=== PATIENT | female | born 1965 | race Asian ===

== ENCOUNTER 2017-04-26 09:50 | Emergency (ER) | payer SELFPAY ==
[2017-04-26 10:05] VITALS: BP 145/62
--- NOTE | 2017-04-26 10:43 | RAD ---
HISTORY: Fall, left arm pain COMPARISONS: None VIEWS: 3, frontal and lateral oblique views of the left elbow, with frontal external rotation views of the left humerus FINDINGS: BONE DENSITY: Normal. BONES: There is an oblique, angulated fracture of the distal humeral diaphysis, with approximately 20 degrees of ulnar angulation of the distal fragment with respect to the proximal fragment . There is a 100% posterior displacement of the distal fragment with respect to the proximal fragment. JOINTS: There is no arthropathy. ALIGNMENT: There is no dislocation. SOFT TISSUES: Unremarkable. OTHER FINDINGS: None. IMPRESSION: OBLIQUE, ANGULATED AND DISPLACED FRACTURE OF THE DISTAL HUMERAL DIAPHYSIS
[2017-04-26] MEDS ORDERED: Ketorolac INJ* 30 MG/ML 1 ML VIAL IV PUSH ONE (10:57)
--- NOTE | 2017-04-26 10:59 | ED ---
Upper Extremity Pain - HPI Summary HPI Summary: 51F presents with left elbow pain s/p falling. She fell onto left arm. The area was slippery and she slipped on the ground and fell onto that side. She denies any chest pain, SOB. She has not taken anything for pain. She is right handed. She works as a teacher. She denies any numbness or tingling. She can move her left fingers. She states pain is greatest in her left upper arm near her elbow. She denies any previous fracture there. She is from [facility]. - History of Current Complaint Chief Complaint: EDExtremityUpper Stated Complaint: LT ARM INJURY Time Seen by Provider: 04/26/17 10:33 - Allergies/Home Medications Allergies/Adverse Reactions: Allergies Allergy/AdvReac Type Severity Reaction Status Date / Time No Known Allergies Allergy Verified 04/26/17 11:18 PMH/Surg Hx/FS Hx/Imm Hx Endocrine/Hematology History: Denies: Hx Anticoagulant Therapy Cardiovascular History: Denies: Hx Hypertension Infectious Disease History: Reports: Traveled Outside the [place] in Last 30 Days - [facility] - Family History Known Family History: Negative: Cardiac Disease - Social History Alcohol Use: None Substance Use Type: Reports: None Smoking Status (MU): Never Smoked Tobacco Review of Systems Negative: Fever Negative: Chest Pain Negative: Shortness Of Breath Positive: Myalgia - left humerus pain All Other Systems Reviewed And Are Negative: Yes Physical Exam Triage Information Reviewed: Yes Vital Signs On Initial Exam: Initial Vitals Temp Pulse Resp BP Pulse Ox 97.9 F 58 20 145/62 100 04/26/17 09:58 04/26/17 09:58 04/26/17 09:58 04/26/17 09:58 04/26/17 09:58 Vital Signs Reviewed: Yes Appearance: Positive: Well-Appearing Skin: Positive: Warm, Dry Eyes: Positive: Normal, EOMI, GEOFFREY, Conjunctiva Clear ENT: Positive: Normal ENT inspection, Pharynx normal, TMs normal Respiratory/Lung Sounds: Positive: Clear to Auscultation, Breath Sounds Present Cardiovascular: Positive: Normal, RRR Musculoskeletal: Positive: Other - good pulses, capillary refill < 2 secs, sensation grossly intact, good gauger delivery strength, nontender to wrist and full ROM, tender along humerus Procedures - Splinting Location: left forearm Hand-Made Type: fiberglass Splint: posterior long arm Pre-Proc Neuro Vasc Exam: normal Post-Proc Neuro Vasc Exam: normal Diagnostics - Vital Signs Vital Signs Temp Pulse Resp BP Pulse Ox 04/26/17 09:58 97.9 F 58 20 145/62 100 - Laboratory Lab Statement: Any lab studies that have been ordered have been reviewed, and results considered in the medical decision making process. - Radiology humerus, elbow Xray Interpretation: Positive (See Comments) - IMPRESSION: OBLIQUE, ANGULATED AND DISPLACED FRACTURE OF THE DISTAL HUMERAL DIAPHYSIS Radiology Interpretation Completed By: Radiologist Course/Dx - Course Course Of Treatment: 51F presents with left arm pain s/p mechanical fall. 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 denies any numbness or tingling. is neurovascularlly intact. good gauger delivery strength. xray humerus and elbow shows distal humerus fracture. spoke with dr flowers said place in posterior long splint and have follow up with ortho today or tomorrow. explained all this to patient and they believed that needed to have surgery that second. explained could heal on its own. finally convinced patient to allow a splint to be placed. explained that it was not an emergency at this time they needed to be seen within the next day or so but no that minute. neurovascular intact s/p splint placed. ordered pain medication. patient understands and agrees with plan - Diagnoses Differential Diagnosis/HQI/PQRI: Positive: Fracture (Closed), Strain, Sprain Provider Diagnoses: Left humeral fracture - Physician Notifications Discussed Care of Patient With: dr flowers Time Discussed With Above Provider: 11:15 - place in poterior long arm and follow up with ortho today or tomorrow Discharge - Discharge Plan Condition: Good Disposition: HOME Prescriptions: oxyCODONE/Acetamin 5/325 MG* [Percocet 5/325 TAB*] 1 tab PO Q6H PRN #20 tab MDD 4 PRN Reason: Pain Patient Education Materials: Arm Fracture in Adults (ED) Referrals: Deandra Flowers MD [Medical Doctor] - Additional Instructions: Keep elbow in sling Keep splint on area and keep dry Call ortho office today to set up follow up appointment Use ibuprofen for pain every 6 hours and use narcotic for breakthrough pain Ice Return to ED if develop numbness or tingling or any new or worsening symptoms
[2017-04-26] MEDS ORDERED: oxyCODONE/Acetamin 5/325 MG* TAB PO ONE (11:04)
[2017-04-26] MEDS ORDERED: Ketorolac INJ* 60 MG/2 ML VIAL IM ONE (11:04)
== END 2017-04-26 11:53 | disposition home or self-care (01) ==
LOC: ED 09:50
DX: S42.492A Other displaced fracture of lower end of left humerus, initial encounter for closed fracture (principal); W01.0XXA Fall on same level from slipping, tripping and stumbling without subsequent striking against object, initial encounter; Y92.9 Unspecified place or not applicable
CPT/HCPCS: 29105; 96372; 96374; 99282; A9270-GY; J1885